=== PATIENT | male | born 1975 | race Caucasian/White ===

== ENCOUNTER 2017-02-01 10:35 | Emergency (ER) | payer MEDICAID ==
[~2017-02-01] VITALS: Ht 170.2 cm; Wt 69.8 kg
[2017-02-01 10:39] VITALS: Ht 170.2 cm; Wt 69.8 kg
[2017-02-01 11:38] LABS: BASOPHIL # 0.1 10^3/ul (0.0-0.1); BASOPHILS % 0.7 % (0.0-2.0); EOSINOPHILS # 0.1 10^3/ul (0.0-0.5); EOSINOPHILS % 1.2 % (0.0-7.0); HEMATOCRIT 39.5 % (42.0-52.0); HEMOGLOBIN 13.7 g/dl (14.0-18.0); LYMPHOCYTES # 2.8 10^3/ul (0.8-2.9); LYMPHOCYTES % 41.9 % (15.0-51.0); MEAN CORPUSCULAR HEMOGLOBIN 32.5 pg (29.0-33.0); MEAN CORPUSCULAR HGB CONC 34.7 g/dl (32.0-37.0); MEAN CORPUSCULAR VOLUME 93.6 fl (82.0-101.0); MONOCYTE # 0.8 10^3/ul (0.3-0.9); MONOCYTES % 11.5 % (0.0-11.0); NEUTROPHILS % 44.6 % (39.0-77.0); PLATELET COUNT 205 10^3/UL (140-415); RED BLOOD COUNT 4.22 10^6/ul (4.70-6.10); RED CELL DISTRIBUTION WIDTH 13.9 % (11.5-14.5); WHITE BLOOD COUNT 6.7 10^3/ul (4.8-10.8)
[2017-02-01 11:44] LABS: ADD UMIC YES; UR ASCORBIC ACID NEGATIVE (NEGATIVE); UR BILIRUBIN (Dip) NEGATIVE (NEGATIVE); UR BLOOD (Dip) 1+ mg/dL (NEGATIVE); UR CLARITY CLEAR (CLEAR); UR COLOR COLORLESS (YELLOW); UR GLUCOSE (Dip) NEGATIVE (NEGATIVE); UR KETONES (Dip) NEGATIVE (NEGATIVE); UR LEUKOCYTE ESTERASE (Dip) NEGATIVE Leu/ul (NEGATIVE); UR NITRITE (Dip) NEGATIVE (NEGATIVE); UR RBC 0 /HPF (0-5); UR SPECIFIC GRAVITY (Dip) 1.001 (1.003-1.030); UR TOTAL PROTEIN (Dip) NEGATIVE (NEGATIVE); UR UROBILINOGEN (Dip) NEGATIVE (NEGATIVE)
[2017-02-01 12:10] LABS: ALANINE AMINOTRANSFERASE 58 IU/L (13-69); ALBUMIN 4.1 g/dl (3.3-4.9); ALBUMIN/GLOBULIN RATIO 0.89; ALKALINE PHOSPHATASE 117 IU/L (42-121); ANION GAP 14 (8-16); ASPARTATE AMINO TRANSFERASE 52 IU/L (15-46); BILIRUBIN,INDIRECT 0.2 mg/dl (0-1.1); BILIRUBIN,TOTAL 0.2 mg/dl (0.2-1.3); BLOOD UREA NITROGEN 10 mg/dl (7-20); CALCIUM 9.2 mg/dl (8.4-10.2); CARBON DIOXIDE 33 mmol/L (21-31); CHLORIDE 93 mmol/L (97-110); GLUCOSE 133 mg/dl (70-220); SODIUM 136 mmol/L (135-144); TOTAL PROTEIN 8.7 g/dl (6.1-8.1)
--- NOTE | 2017-02-01 12:18 | RADRPT ---
PROCEDURE: XR Chest. CLINICAL INDICATION: Shortness of breath. TECHNIQUE: A single portable view of the chest was obtained. COMPARISON: None FINDINGS: The cardiomediastinal silhouette is within normal limits. The lungs and pleural spaces are clear. The soft tissues and osseous structures are unremarkable. IMPRESSION: No acute cardiopulmonary disease. RPTAT: [facility] Physician [place] Date Time Electronically viewed and signed by Duncan Caba Physician on 02/01/2017 12:18 /
[2017-02-01] MEDS ORDERED: SOD CHLORIDE 0.9% 1,000 ML IV STA (12:20)
[2017-02-01] MEDS ORDERED: KETOROLAC 15 MG INJ IV STA (12:25)
--- NOTE | 2017-02-01 12:25 | ERD ---
ER Documentation Chief Complaint Chief Complaint INSOMIA & FEELS SOB AFTER USING FLUCONAZOL FOR BLISTERS IN MOUTH HPI 41-year-old man presents with Y rash and discomfort to the inside of his mouth covering his tongue, present 4-5 days. He states he had a similar episode 2 months ago which was treated with oral antifungal medication. Patient admits to having sex with other men last sexual contact was 3 years ago, he denies history of HIV, denies fevers or chills, no vomiting or diarrhea, no abdominal pain, no weight loss. Patient states he does not want to know his HIV status although is not opposed to being tested. ROS All systems reviewed and are negative except as per history of present illness. Medications Home Meds Active Scripts Nystatin (Nystatin) 100,000 Unit/1 Ml Oral.susp, 2 ML PO TID for 10 Days, OZ 1 Refill Swish and swallow Prov:LINDSAY BOUCHER MD 02/01/17 Allergies Allergies: Coded Allergies: No Known Allergy (Unverified , 02/01/17) PMhx/Soc Denies Hx Alcohol Use: No Hx Substance Use: No Hx Tobacco Use: No Smoking Status: Unknown if ever smoked FmHx Family History: diabetes Physical Exam Vitals Vital Signs Date Time Temp Pulse Resp B/P Pulse Ox O2 Delivery O2 Flow Rate FiO2 02/01/17 13:50 97.9 76 16 125/87 98 Room Air 02/01/17 10:39 98.1 86 20 110/68 97 Physical Exam GENERAL: Well-developed, well-nourished, well-hydrated, in no apparent distress , looks nontoxic in appearance HEENT: Dry mucous membranes, pink conjunctiva, no Kernig sign, positive oral pharyngeal thrush, no pharyngeal erythema NEURO: Alert and oriented 3, cranial nerves II through XII intact bilaterally, pupils equal round reactive to light, no focal deficits or facial asymmetry, sensation intact distally Strength 5/5 in upper and lower extremities bilaterally CARDIAC: Regular rate and rhythm, no murmurs rubs or gallops LUNGS: Clear bilaterally no wheezing crackles or stridor ABDOMEN: Soft nontender, no guarding, no rigidity, no rebound, no psoas sign no obturator sign. Normoactive bowel sounds SKIN: Warm and dry to touch, no abrasions, contusions, or hematomas, no lacerations, no ecchymosis, no target lesions, and without ulcers EXTREMITIES: No clubbing cyanosis or edema, calves are bilaterally symmetrical, no Homans sign, no popliteal cord sign. Distal pulses equal and bilateral PSYCH: Normal affect without agitation or irritability Result Diagram: 02/01/17 1100 02/01/17 1100 Results 24 hrs Laboratory Tests Test 02/01/17 11:00 White Blood Count 6.710^3/ul Red Blood Count 4.2210^6/ul Hemoglobin 13.7g/dl Hematocrit 39.5% Mean Corpuscular Volume 93.6fl Mean Corpuscular Hemoglobin 32.5pg Mean Corpuscular Hemoglobin Concent 34.7g/dl Red Cell Distribution Width 13.9% Platelet Count 61185^3/UL Mean Platelet Volume 10.0fl Neutrophils % 44.6% Lymphocytes % 41.9% Monocytes % 11.5% Eosinophils % 1.2% Basophils % 0.7% Nucleated Red Blood Cells % 0.0/100WBC Neutrophils # 3.010^3/ul Lymphocytes # 2.810^3/ul Monocytes # 0.810^3/ul Eosinophils # 0.110^3/ul Basophils # 0.110^3/ul Nucleated Red Blood Cells # 0.010^3/ul Urine Color COLORLESS Urine Clarity CLEAR Urine pH 7.0 Urine Specific [place] 1.001 Urine Ketones NEGATIVEmg/dL Urine Nitrite NEGATIVEmg/dL Urine Bilirubin NEGATIVEmg/dL Urine Urobilinogen NEGATIVEmg/dL Urine Leukocyte Esterase NEGATIVELeu/ul Urine Microscopic RBC 0/HPF Urine Microscopic WBC 0/HPF Urine Hemoglobin 1+mg/dL Urine Glucose NEGATIVEmg/dL Urine Total Protein NEGATIVEmg/dl Sodium Level 136mmol/L Potassium Level 4.0mmol/L Chloride Level 93mmol/L Carbon Dioxide Level 33mmol/L Anion Gap 14 Blood Urea Nitrogen 10mg/dl Creatinine 0.80mg/dl Glucose Level 133mg/dl Calcium Level 9.2mg/dl Total Bilirubin 0.2mg/dl Direct Bilirubin 0.00mg/dl Indirect Bilirubin 0.2mg/dl Aspartate Amino Transf (AST/SGOT) 52IU/L Alanine Aminotransferase (ALT/SGPT) 58IU/L Alkaline Phosphatase 117IU/L Total Protein 8.7g/dl Albumin 4.1g/dl Globulin 4.60g/dl Albumin/Globulin Ratio 0.89 Lipase 274U/L HIV (1&2) Antibody REACTIVE Current Medications Medications (Trade) Dose Ordered Sig/Fredi Route PRN Reason Start Time Stop Time Status Last Admin Dose Admin Sodium Chloride (NS) 1,000 ml @ 1,000 mls/hr Q1H STAT IV 02/01/17 12:20 02/01/17 13:19 DC 02/01/17 12:38 Fluconazole (Diflucan) 200 mg ONCE ONCE PO 02/01/17 12:30 02/01/17 12:31 DC 02/01/17 13:03 Ketorolac Tromethamine (Toradol) 15 mg ONCE STAT IV 02/01/17 12:25 02/01/17 12:26 DC 02/01/17 12:37 Procedures/MDM IV line was established patient was placed on equipment monitor phototypesetting rhythm strip revealed a sinus rhythm at about 80 bpm with upright P and T waves. Patient was afebrile EKG performed, read by me: 86 bpm, normal sinus rhythm, normal axis, T-wave inversions precordially, no concerning ST elevations or depressions noted. One AP view of the chest performed, read by me reveals no acute infiltrates, normal mediastinum, sharp costophrenic and cardiac borders, no air under the diaphragm. Otherwise unremarkable chest x-ray. I administered 1 L normal saline intravenously, fluconazole 200 mg p.o. 1, Toradol 15 mg IV 1. CBC and electrolytes were unremarkable, liver function tests were normal, urine analysis was negative for infection. HIV 1 and 2 serology testing was positive consistent with his presentation. Patient represents a public health hazard as he does not want to know the status of his HIV testing, and I may have to contact [facility]. I recommended he use protection with every single sexual interaction that he has, and recommended he follow-up with his PMD for continued outpatient management, I also recommended he obtain his medical records from our hospital when and if he changes his mind about his HIV results. I provided both verbal and written recommendations for HIV counseling and nearby outpatient clinics. Differential diagnoses considered, included but not limited to acute coronary syndrome, pulmonary embolism, aortic dissection, abdominal aortic aneurysm, sepsis, stroke, meningitis, encephalitis, pneumonia, appendicitis, cholecystitis , bowel obstruction, pyelonephritis, nephrolithiasis, cystitis, as well as metabolic, hematologic, and electrolyte abnormalities. As well as abscess, cellulitis, fractures, and dislocations. Patient feels much better at this time, and vital signs are normal, symptoms have improved. I did give strict instructions to return to the ED if symptoms continue or worsen, patient will otherwise follow-up with primary care physician. Patient understood instructions and agreed to plan. Disclaimer: Inadvertent spelling and grammatical errors are likely due to EHR/ dictation software use and do not reflect on the overall quality of patient care. Also, please note that the electronic time recorded on this note does not necessarily reflect the actual time of the patient encounter. Departure Diagnosis: Primary Impression: Thrush Additional Impressions: HIV (human immunodeficiency virus infection) AIDS Condition: Stable LINDSAY BOUCHER MD Feb 01, 2017 12:25
[2017-02-01] MEDS ORDERED: FLUCONAZOLE 200 MG TAB PO ONE (12:30)
[2017-02-01] MEDS ORDERED: NYST1000 PO (13:33)
[2017-02-01 13:50] VITALS: BP 125/87; PULSE 76; RESP 16; TEMP 97.9
== END 2017-02-01 13:50 | disposition home or self-care (01) ==
LOC: FTE 10:35
DX: B37.0 Candidal stomatitis (principal); B20 Human immunodeficiency virus [HIV] disease
CPT/HCPCS: 36415; 71010; 80053; 81001; 83690; 85025; 86701; 86703; 93005; 96374; J1885; J7030; Z7502; Z7610

== ENCOUNTER 2017-03-21 12:10 | Emergency (ER) | END 2017-03-21 14:51 | disposition home or self-care (01) ==